=== PATIENT | male | born 1980 | race Caucasian/White ===

== ENCOUNTER 2016-05-23 13:35 | Emergency (ER) | payer OTHER ==
[2016-05-23 13:42] VITALS: RESP 18; TEMP 98.3
--- NOTE | 2016-05-23 14:35 | XR ---
EXAMINATION TYPE: XR shoulder complete LT DATE OF EXAM: 05/23/2016 2:31 PM CLINICAL HISTORY: pain COMPARISON: 05/05/2013 TECHNIQUE: Three views of the left shoulder are obtained. FINDINGS: There is no acute fracture/dislocation evident. Remote fracture distal left clavicle. The acromioclavicular and glenohumeral joint spaces appear within normal limits. The visualized ribs are intact and unremarkable. IMPRESSION: 1. There is no acute fracture or dislocation. ICD 10 NO FRACTURE, INITIAL EVALUATION
--- NOTE | 2016-05-23 14:38 | ED ---
Upper Extremity HPI - General Chief Complaint: Extremity Injury, Upper Stated Complaint: L shoulder pain Time Seen by Provider: 05/23/16 13:49 Source: patient, RN notes reviewed Mode of arrival: ambulatory Limitations: no limitations - History of Present Illness Initial Comments: Patient is a 35-year-old male presenting to the with a complaint of left shoulder pain. Patient reports he's had a history of clavicle fracture 2 years gone over the past week he's had no increased movements and pain. Patient reports that this is been worse over the past week. He states he is ALLERGIC to multiple pain medications. He reports that he has not had any recent imaging studies. Patient states that he has have full range of motion of the shoulder and hip. He denies any peripheral paresthesias. He denies any specific acute trauma causing pain.Patient denies any recent fever, chills, shortness of breath, chest pain, back pain, abdominal pain, nausea vomiting, numbness or tingling, dysuria or hematuria, constipation or diarrhea, headaches or visual changes, or any other current symptoms - Related Data Previous Rx's Medication Instructions Recorded Metoprolol Tartrate 25 mg PO BID #60 tab 01/10/16 Cyclobenzaprine [Flexeril] 10 mg PO TID #12 tablet 05/23/16 Allergies Allergy/AdvReac Type Severity Reaction Status Date / Time diclofenac potassium Allergy Rash/Hives Verified 05/23/16 13:42 [From Cataflam] garlic Allergy Rash/Hives Verified 05/23/16 13:42 ibuprofen Allergy Rash/Hives Verified 05/23/16 13:42 tramadol Allergy Unknown Verified 05/23/16 13:42 ziprasidone HCl [From Geodon] Allergy Unknown Verified 05/23/16 13:42 ziprasidone mesylate Allergy Unknown Verified 05/23/16 13:42 [From Geodon] Review of Systems ROS Statement: Those systems with pertinent positive or pertinent negative responses have been documented in the HPI. ROS Other: All systems not noted in ROS Statement are negative. Past Medical History Additional Past Medical History / Comment(s): BACK PAIN; BULGING DISCS shoulder , fx clavicle History of Any Multi-Drug Resistant Organisms: None Reported Additional Past Surgical History / Comment(s): EYE SURGERY Past Psychological History: Anxiety, Bipolar, Depression Smoking Status: Current every day smoker Past Alcohol Use History: Occasional Past Drug Use History: Marijuana General Exam - General Exam Comments Initial Comments: Patient is a pleasant 35-year-old male. He does not appear to be in any acute distress. Limitations: no limitations General appearance: alert, in no apparent distress Head exam: Present: atraumatic, normocephalic, normal inspection Eye exam: Present: normal appearance, PERRL, EOMI. Absent: scleral icterus, conjunctival injection, periorbital swelling ENT exam: Present: normal exam, mucous membranes moist Neck exam: Present: normal inspection. Absent: tenderness, meningismus, lymphadenopathy Respiratory exam: Present: normal lung sounds bilaterally. Absent: respiratory distress, wheezes, rales, rhonchi, stridor Cardiovascular Exam: Present: regular rate, normal rhythm, normal heart sounds. Absent: systolic murmur, diastolic murmur, rubs, gallop, clicks GI/Abdominal exam: Present: soft, normal bowel sounds. Absent: distended, tenderness, guarding, rebound, rigid Extremities exam: Present: normal inspection, full ROM, normal capillary refill. Absent: tenderness, pedal edema, joint swelling, calf tenderness Left Shoulder Exam: Present: normal inspection, full ROM, other (Evidence of poor healing of the clavicle bone. There is evidence of slight deformity.) Upper Arm exam: Present: normal inspection, full ROM Elbow exam: Present: normal inspection, full ROM Forearm Wrist exam: Present: normal inspection, full ROM Hand Wrist exam: Present: normal inspection, full ROM Back exam: Present: normal inspection Neurological exam: Present: alert, oriented X3, CN II-XII intact Psychiatric exam: Present: normal affect, normal mood Skin exam: Present: warm, dry, intact, normal color. Absent: rash Course Vital Signs 05/23/16 05/23/16 13:38 15:08 Temperature 98.3 F Pulse Rate 75 68 Respiratory 18 18 Rate Blood Pressure 173/90 149/103 O2 Sat by Pulse 99 98 Oximetry Medical Decision Making - Medical Decision Making Patient is a 35-year-old male presents with chief complaint of left shoulder pain for approximately one week. Patient does have a history of clavicular fracture approximately 2 years ago. Patient reports that he had poor healing. Patient denies any specific new trauma causing the injury. X-ray was completed and is negative for any acute process. Glenohumeral joint spaces do appear intact. Patient will be discharged at this time instructed to follow-up with orthopedic physician. Patient understands treatment plan will comply. Return parameters were discussed. - Radiology Data Radiology results: report reviewed There is no acute fracture or dislocation evident. There is normal fracture of the distal clavicle. The acromioclavicular and glenohumeral joints appear to be in normal limits. Visualizes ribs are intact and unremarkable. Cerebellar Dr. Brown. Disposition Clinical Impression: Shoulder strain, Hypertension Disposition: HOME SELF-CARE Condition: Good Instructions: Rotator Cuff Injury (ED) Additional Instructions: Instructed to apply heat and ice over the shoulder. Patient instructed to take anti-inflammatory medications as prescribed. Return to the EC if any alarming signs or symptoms occur. Patient instructed to follow up with primary care provider regards to high blood pressure. Prescriptions: Cyclobenzaprine [Flexeril] 10 mg PO TID #12 tablet Referrals: Reba Redding MD [Primary Care Provider] - 1-2 days Steven Hutson MD [STAFF PHYSICIAN] - 1-2 days Time of Disposition: 14:40
[2016-05-23] MEDS ORDERED: ACET/COD 300 MG/30 MG STARTER PACK 6 TAB BTL PO STA (14:50)
[2016-05-23 15:10] VITALS: BP 149/103; PULSE 68
== END 2016-05-23 15:10 | disposition home or self-care (01) ==
LOC: EC 13:35
DX: S46.012A Strain of muscle(s) and tendon(s) of the rotator cuff of left shoulder, initial encounter (principal); I10 Essential (primary) hypertension; F17.200 Nicotine dependence, unspecified, uncomplicated; Z87.81 Personal history of (healed) traumatic fracture; Z88.6 Allergy status to analgesic agent; Z88.8 Allergy status to other drugs, medicaments and biological substances; Z91.018 Allergy to other foods; X58.XXXA Exposure to other specified factors, initial encounter
CPT/HCPCS: 99283

== ENCOUNTER → 2016-07-27 | Outpatient (CLI) | payer OTHER ==
--- NOTE | 2016-07-27 08:04 | US ---
EXAMINATION TYPE: US liver DATE OF EXAM: 07/27/2016 7:29 AM COMPARISON: NONE CLINICAL HISTORY: R94.5 ABN LIVER FUNCTION TEST. EXAM MEASUREMENTS: Liver Length: 11.0 cm Gallbladder Wall: 0.2 cm CBD: 0.4 cm Right Kidney: 10.3 x 4.3 x 4.6 cm TECHNOLOGIST IMPRESSION: Pancreas: portions visualized wnl, partially obscured by bowel gas Liver: wnl Gallbladder: wnl Evidence for sonographic Clancy's sign: no CBD: wnl Right Kidney: wnl Visualized pancreas is within normal limits. Visualized liver is felt unremarkable. No shadowing mobi le gallstones are seen. Limited images of right kidney show no gross hydronephrosis. IMPRESSION: No worrisome intrahepatic mass or intrahepatic ductal dilatation.
== END | disposition home or self-care (01) ==
LOC: RADUSWWP 07:06
PROVIDERS: ATTEND Internal Medicine
DX: R94.5 Abnormal results of liver function studies (principal)
CPT/HCPCS: 76705

== ENCOUNTER → 2016-07-28 | Outpatient (CLI) | payer OTHER ==
[2016-07-28 12:47] LABS: Basophils # (A) 0.1 k/uL (0-0.2); Basophils % (A) 1 %; Eosinophils # (A) 0.2 k/uL (0-0.7); Eosinophils % (A) 3 %; HCT 49.3 % (39.0-53.0); HDW 3.07; HGB 16.6 gm/dL (13.0-17.5); Luc # (Auto) 0.29; Luc % (Auto) 3; Lymphocytes # (A) 2.9 k/uL (1.0-4.8); Lymphocytes % (A) 34 %; MCH 28.8 pg (25.0-35.0); MCHC 33.6 g/dL (31.0-37.0); MCV 85.8 fL (80.0-100.0); Mean Platelet Volume 8.2; Monocytes # (A) 0.3 k/uL (0-1.0); Monocytes % (A) 4 %; Neutrophils # (A) 4.7 k/uL (1.3-7.7); Neutrophils % (A) 55 %; RBC 5.75 m/uL (4.30-5.90); RDW 13.9 % (11.5-15.5); WBC 8.6 k/uL (3.8-10.6); WBC (Perox) 8.73
[2016-07-28 13:15] LABS: ALT 75 U/L (21-72); AST 52 U/L (17-59); Alkaline Phosphatase 99 U/L (38-126); Bilirubin, Delta 0.5 mg/dL (0.0-0.2); Total Bilirubin 1.5 mg/dL (0.2-1.3); Total Protein 9.2 g/dL (6.3-8.2)
[2016-07-28 13:45] LABS: Hepatitis B Surface Ag Index 0.09
[2016-07-28 13:51] LABS: Hepatitis B Core IgM Index 0.07
[2016-07-28 14:06] LABS: Hepatitis C Virus IgG Ab Reactive (Negative)
[2016-07-31 15:50] LABS: HCV Qualitative Result DETECTED (Not detected)
== END | disposition home or self-care (01) ==
LOC: LABWHC1 12:14
PROVIDERS: ATTEND Physician Assistant
DX: B18.2 Chronic viral hepatitis C (principal)
CPT/HCPCS: 36415; 80074; 80076; 85025; 87522; 87902

== ENCOUNTER → 2016-09-19 | Outpatient (CLI) | payer OTHER ==
[2016-09-19 11:04] VITALS: BMI 29.0
== END | disposition home or self-care (01) ==
LOC: MNTWWP 10:34
PROVIDERS: ATTEND Physician Assistant
DX: E66.09 Other obesity due to excess calories (principal)
CPT/HCPCS: 97802

== ENCOUNTER → 2016-11-09 | Outpatient (CLI) | payer OTHER ==
[2016-11-09 17:52] LABS: CH 28.9; CHCM 33.6; HCT 45.3 % (39.0-53.0); HGB 15.1 gm/dL (13.0-17.5); MCHC 33.5 g/dL (31.0-37.0); MCV 86.5 fL (80.0-100.0); Mean Platelet Volume 8.3; RBC 5.23 m/uL (4.30-5.90); RDW 14.3 % (11.5-15.5); WBC 7.6 k/uL (3.8-10.6)
[2016-11-09 18:06] LABS: Bilirubin, Delta 0.5 mg/dL (0.0-0.2); Total Bilirubin 1.2 mg/dL (0.2-1.3); Total Protein 8.6 g/dL (6.3-8.2)
[2016-11-13 10:27] LABS: LOG HCV IU/mL 5.93 (<1.08)
== END | disposition home or self-care (01) ==
LOC: LABWHC1 16:32
PROVIDERS: ATTEND Physician Assistant
DX: B18.2 Chronic viral hepatitis C (principal)
CPT/HCPCS: 36415; 80076; 85027; 87522

== ENCOUNTER 2017-02-03 | Emergency (ER) | payer OTHER ==
--- NOTE | 2017-02-03 12:38 | ED ---
General Adult HPI - General Chief complaint: Headache Stated complaint: Congested, headache Time Seen by Provider: 02/03/17 12:25 Source: patient, RN notes reviewed Mode of arrival: ambulatory Limitations: no limitations - History of Present Illness Initial comments: [age] male presents emergency Department chief complaint of cough cold runny nose like symptoms. He states it's been sick for a few days. Having ear pain and throat irritation. Patient admits to a dry cough. patient states he's had some nausea. Patient denies any high fevers. Patient was concerned due to the continued symptoms so they thought that they should be evaluated. Patient denies any recent fever, chills, shortness of breath, chest pain, back pain, abdominal pain, numbness or tingling, dysuria or hematuria, constipation or diarrhea, headaches or visual changes, or any other current symptoms. - Related Data Previous Rx's Medication Instructions Recorded Metoprolol Tartrate 25 mg PO BID #60 tab 01/10/16 Cyclobenzaprine [Flexeril] 10 mg PO TID #12 tablet 05/23/16 Azithromycin [Zithromax] 250 mg PO DIRECTED #6 tab 02/03/17 Allergies Allergy/AdvReac Type Severity Reaction Status Date / Time diclofenac potassium Allergy Rash/Hives Verified 02/03/17 12:24 [From Cataflam] garlic Allergy Rash/Hives Verified 02/03/17 12:24 ibuprofen Allergy Rash/Hives Verified 02/03/17 12:24 tramadol Allergy Unknown Verified 02/03/17 12:24 ziprasidone HCl [From Geodon] Allergy Unknown Verified 02/03/17 12:24 ziprasidone mesylate Allergy Unknown Verified 02/03/17 12:24 [From Geodon] Review of Systems ROS Statement: Those systems with pertinent positive or pertinent negative responses have been documented in the HPI. ROS Other: All systems not noted in ROS Statement are negative. Past Medical History Past Medical History: No Reported History Additional Past Medical History / Comment(s): BACK PAIN; BULGING DISCS shoulder , fx clavicle . Hepatitis C History of Any Multi-Drug Resistant Organisms: None Reported Past Surgical History: No Surgical Hx Reported Additional Past Surgical History / Comment(s): EYE SURGERY Past Psychological History: Anxiety, Bipolar, Depression Smoking Status: Current every day smoker Past Alcohol Use History: Rare Past Drug Use History: Marijuana General Exam - General Exam Comments Initial Comments: General exam: Alert, active, comfortable in no apparent distress Head: Normocephalic Eyes: Normal reaction of pupils, equal size, normal range of extraocular motion Ears: normal external ear canals, pink tympanic membranes with normal cone of lighton the right, patient has erythematous left tympanic membrane Nose: clear with pink turbinates Throat: no erythema or exudates with normal sized tonsils Neck: no masses, no nuchal rigidity Chest: no chest wall deformity Lungs: equal air entry with no crackles or wheeze CVS: S1 and S2 normal with no audible mumurs, regular rhythm Spine: no scoliosis or deformity Skin: no rashes Neurological: No focal deficits, tone is normal in all 4 extremities Limitations: no limitations Course Vital Signs 02/03/17 12:21 Temperature 97.5 F L Pulse Rate 68 Respiratory 18 Rate Blood Pressure 131/85 O2 Sat by Pulse 100 Oximetry Medical Decision Making - Medical Decision Making 36 yo female presents with what appears to be a left otitis media. This and we' ll start patient antibiotics. We discussed follow-up return parameters all questions. He stated he understood he is given plan. All questions have been answered. He'll be discharged. Disposition Clinical Impression: Left otitis media Disposition: HOME SELF-CARE Condition: Stable Instructions: Otitis Media (ED) Additional Instructions: Please use medication as discussed. Please follow up with family doctor if symptoms have not improved over the next two days. Please return to the emergency room if your symptoms increase or worsen or for any other concerns. Prescriptions: Azithromycin [Zithromax] 250 mg PO DIRECTED #6 tab Referrals: Reba Redding MD [Primary Care Provider] - 1-2 days Time of Disposition: 12:38
== END 2017-02-03 12:53 | disposition home or self-care (01) ==
CPT/HCPCS: 99283

== ENCOUNTER 2017-07-13 09:34 | Emergency (ER) | payer OTHER ==
[2017-07-13 09:55] VITALS: BP 150/95; PULSE 58; RESP 17; TEMP 98
[2017-07-13] MEDS ORDERED: HYDROcodone/APAP 5-325MG 1 EACH TAB PO STA (10:44)
--- NOTE | 2017-07-13 10:50 | ED ---
ENT HPI - General Chief complaint: Dental/Oral Stated complaint: tooth Infection Time Seen by Provider: 07/13/17 10:07 Source: patient Mode of arrival: ambulatory Limitations: no limitations - History of Present Illness Initial comments: Patient presents with chief complaint of dental pain. The patient states that he has been having dental problems for over a year. The patient states that he is going to have surgery at [facility] to take care of his poor dentition. Patient presents today for pain. The patient states that he feels like his teeth are getting infected again. He has been on multiple rounds of antibiotics for this periodically over the last year. Patient describes the pain as aching. He denies any trouble swallowing, shortness of breath, neck pain or swelling. Patient's medical ALLERGIES were reviewed. Patient states that he has been on clindamycin before with good relief of his dental pain. - Related Data Previous Rx's Medication Instructions Recorded Metoprolol Tartrate 25 mg PO BID #60 tab 01/10/16 Cyclobenzaprine [Flexeril] 10 mg PO TID #12 tablet 05/23/16 Azithromycin [Zithromax] 250 mg PO DIRECTED #6 tab 02/03/17 Clindamycin [Cleocin] 450 mg PO TID #30 capsule 07/13/17 Allergies Allergy/AdvReac Type Severity Reaction Status Date / Time diclofenac potassium Allergy Rash/Hives Verified 07/13/17 09:52 [From Cataflam] garlic Allergy Rash/Hives Verified 07/13/17 09:52 ibuprofen Allergy Rash/Hives Verified 07/13/17 09:52 tramadol Allergy Unknown Verified 07/13/17 09:52 ziprasidone HCl [From Geodon] Allergy Unknown Verified 07/13/17 09:52 ziprasidone mesylate Allergy Unknown Verified 07/13/17 09:52 [From Geodon] Review of Systems ROS Statement: Those systems with pertinent positive or pertinent negative responses have been documented in the HPI. ROS Other: All systems not noted in ROS Statement are negative. ENT: Reports: dental pain Past Medical History Past Medical History: No Reported History Additional Past Medical History / Comment(s): BACK PAIN; BULGING DISCS shoulder , fx clavicle . Hepatitis C History of Any Multi-Drug Resistant Organisms: None Reported Past Surgical History: No Surgical Hx Reported Additional Past Surgical History / Comment(s): EYE SURGERY Past Psychological History: Anxiety, Bipolar, Depression Smoking Status: Current every day smoker Past Alcohol Use History: Rare Past Drug Use History: Marijuana General Exam Limitations: no limitations General appearance: alert, in no apparent distress Head exam: Present: atraumatic, normocephalic Eye exam: Present: normal appearance, PERRL ENT exam: Present: mucous membranes moist, other (Patient has very poor dentition, there are numerous dental caries and missing teeth. There are no intraoral mucosal lesions noted) Neck exam: Present: full ROM. Absent: tenderness Respiratory exam: Present: normal lung sounds bilaterally. Absent: respiratory distress Cardiovascular Exam: Present: regular rate, normal rhythm GI/Abdominal exam: Present: soft. Absent: distended, tenderness Rectal exam: Present: deferred Neurological exam: Present: alert, oriented X3 Psychiatric exam: Present: normal affect, normal mood Course Vital Signs 07/13/17 09:52 Temperature 98.0 F Pulse Rate 58 L Respiratory 17 Rate Blood Pressure 150/95 O2 Sat by Pulse 99 Oximetry Medical Decision Making - Medical Decision Making Patient presents with chief complaint of dental pain and dental infection. This been an ongoing problem for over a year. Patient is scheduled to have surgery at [facility] to resolve this issue. On initial evaluation, vital signs are stable, patient is in no acute distress. Patient has been taking Tylenol for pain however today he does not expect any narcotic medications and only wants antibiotics. Examination of mouth shows poor dentition however there are no intraoral mucosal lesions, drainage, or overt swelling. There is no fluctuance of the face, neck, or sublingual area. Patient is handling his secretions well. Patient was given a dose of [place] in the emergency Department , instructed to continue taking Tylenol for pain, and was prescribed clindamycin for 10 days. He was instructed to follow up as soon as possible with oral surgery. He is instructed to return to the emergency department in 12 -24 hours for reevaluation if his symptoms worsen or change. Disposition Clinical Impression: Dental caries, Dental abscess Disposition: HOME SELF-CARE Condition: Good Instructions: Dental Abscess (ED), Dental Caries (ED) Prescriptions: Clindamycin [Cleocin] 450 mg PO TID #30 capsule Referrals: Reba Redding MD [Primary Care Provider] - 1-2 days
== END 2017-07-13 11:06 | disposition home or self-care (01) ==
LOC: EC 09:34
DX: K04.7 Periapical abscess without sinus (principal); K02.9 Dental caries, unspecified; F17.200 Nicotine dependence, unspecified, uncomplicated; Z88.5 Allergy status to narcotic agent; Z88.6 Allergy status to analgesic agent; Z88.8 Allergy status to other drugs, medicaments and biological substances; Z91.018 Allergy to other foods
CPT/HCPCS: 99282

== ENCOUNTER → 2017-07-27 | Outpatient (CLI) | payer OTHER ==
[2017-07-27 11:57] LABS: Basophils % (A) 1 %; Eosinophils # (A) 0.1 k/uL (0-0.7); Eosinophils % (A) 2 %; HGB 15.6 gm/dL (13.0-17.5); Lymphocytes # (A) 3.1 k/uL (1.0-4.8); Lymphocytes % (A) 42 %; MCH 30.6 pg (25.0-35.0); MCHC 36.2 g/dL (31.0-37.0); MCV 84.4 fL (80.0-100.0); Mean Platelet Volume 7.4; Monocytes # (A) 0.3 k/uL (0-1.0); Monocytes % (A) 5 %; Neutrophils # (A) 3.5 k/uL (1.3-7.7); Neutrophils % (A) 48 %; Platelet Count 258 k/uL (150-450); RBC 5.09 m/uL (4.30-5.90); RDW 13.9 % (11.5-15.5); WBC 7.2 k/uL (3.8-10.6)
[2017-07-27 12:00] LABS: Albumin 4.6 g/dL (3.5-5.0); Bilirubin, Delta 0.4 mg/dL (0.0-0.2); Bilirubin,Unconjugated 0.2 mg/dL (0.0-1.1); Total Bilirubin 0.6 mg/dL (0.2-1.3); Total Protein 8.3 g/dL (6.3-8.2)
[2017-07-31 10:46] LABS: Hepatits C Virus RNA DETECTED (Not detected); LOG HCV IU/mL 5.93 (<1.08)
== END | disposition home or self-care (01) ==
LOC: LABWHC1 11:20
PROVIDERS: ATTEND Physician Assistant
DX: B18.2 Chronic viral hepatitis C (principal)
CPT/HCPCS: 36415; 80076; 85025; 87522

== ENCOUNTER 2017-09-28 05:56 | Emergency (ER) | payer OTHER ==
[2017-09-28 06:03] VITALS: BP 168/101; PULSE 95; RESP 18; TEMP 98.3
[2017-09-28] MEDS ORDERED: INSULIN ASPART 100 UNIT/ML 1 ML 10 ML VIAL SQ ONE (06:04)
--- NOTE | 2017-09-28 06:16 | ED ---
ENT HPI - General Chief complaint: Dental/Oral Stated complaint: Dental Pain Time Seen by Provider: 09/28/17 06:03 Source: patient Mode of arrival: ambulatory Limitations: no limitations - History of Present Illness Initial comments: This is a 37-year-old male who presents emergency department for right-sided dental pain. The patient recently had all of his teeth removed on the of this month. He was on [place] right after the surgery however states that the pain is now returned. He states that the pain is worse on the right side and after he eats. He states he has noticed some swelling in his cheek as well. No fevers or chills or drainage. He was supposed to follow-up with the oral surgeon 5 days after the procedure however never did. He does have an appointment with [facility] to have false teeth fitted and wants to make sure that there is no infection before he goes in and has this appointment. Denies any other complaints. Patient states "I'm here just to get the pain under control so that I can eat and make sure that I don't have an infection ". - Related Data Previous Rx's Medication Instructions Recorded Metoprolol Tartrate 25 mg PO BID #60 tab 01/10/16 Cyclobenzaprine [Flexeril] 10 mg PO TID #12 tablet 05/23/16 Azithromycin [Zithromax] 250 mg PO DIRECTED #6 tab 02/03/17 Clindamycin [Cleocin] 450 mg PO TID #30 capsule 07/13/17 Acetaminophen with Codeine 1 tab PO Q6H PRN 3 Days #10 tab 09/28/17 [Tylenol w/codeine #3] Clindamycin [Cleocin] 450 mg PO Q6H #60 capsule 09/28/17 Allergies Allergy/AdvReac Type Severity Reaction Status Date / Time diclofenac potassium Allergy Rash/Hives Verified 09/28/17 06:02 [From Cataflam] garlic Allergy Rash/Hives Verified 09/28/17 06:02 ibuprofen Allergy Rash/Hives Verified 09/28/17 06:02 tramadol Allergy Unknown Verified 09/28/17 06:02 ziprasidone HCl [From Geodon] Allergy Unknown Verified 09/28/17 06:02 ziprasidone mesylate Allergy Unknown Verified 09/28/17 06:02 [From Geodon] Review of Systems ROS Statement: Those systems with pertinent positive or pertinent negative responses have been documented in the HPI. ROS Other: All systems not noted in ROS Statement are negative. Past Medical History Past Medical History: No Reported History Additional Past Medical History / Comment(s): BACK PAIN; BULGING DISCS shoulder , fx clavicle . Hepatitis C History of Any Multi-Drug Resistant Organisms: None Reported Past Surgical History: No Surgical Hx Reported Additional Past Surgical History / Comment(s): EYE SURGERY, oral surgery Past Psychological History: Anxiety, Bipolar, Depression Smoking Status: Current every day smoker Past Alcohol Use History: Rare Past Drug Use History: Marijuana General Exam - General Exam Comments Initial Comments: Constitutional: Awake alert Appears comfortable Head: Normocephalic atraumatic Eyes: no conjunctival injection No scleral icterus EOMI ENT: All teeth have been removed from the mouth, there are postsurgical changes along the mandible and maxilla, there is no visible abscesses, there is some mild swelling of the right buccal mucosa however no fluctuant areas Neck: No JVD Supple Heart: Regular rate rhythm normal S1-S2 no murmurs Lungs: Clear to auscultation bilaterally No wheezing No rales Abdomen: Soft nondistended nontender Extremities: Non edematous DP pulses intact Radial pulses intact Neuro: A&Ox3 No focal neurologic deficits Psych: Appropriate mood and affect Limitations: no limitations Course Vital Signs 09/28/17 06:00 Temperature 98.3 F Pulse Rate 95 Respiratory 18 Rate Blood Pressure 168/101 O2 Sat by Pulse 98 Oximetry Medical Decision Making - Medical Decision Making This is a 37-year-old male who presents emergency department for dental pain. The patient will be provided with Tylenol 3 and clindamycin. He has appointment with a dentist next week. Told to return if he has worsening or changing symptoms. The patient was strongly encouraged follow-up with his oral surgeon however the patient states he has difficulty getting down to [place] to have this done. All questions were answered. Disposition Clinical Impression: Pain, dental Disposition: HOME SELF-CARE Condition: Stable Instructions: Toothache (ED) Prescriptions: Acetaminophen with Codeine [Tylenol w/codeine #3] 1 tab PO Q6H PRN 3 Days #10 tab PRN Reason: Pain Clindamycin [Cleocin] 450 mg PO Q6H #60 capsule Is patient prescribed a controlled substance at d/c from ED?: Yes When asked, does pt state using other controlled substances?: No If prescribed controlled substance>3 days was MAPS reviewed?: Prescribed <3 Days If opioid is for acute pain is fill amount 7 days or less?: Yes Referrals: Reba Redding MD [Primary Care Provider] - 1-2 days
== END 2017-09-28 06:21 | disposition home or self-care (01) ==
LOC: EC 05:56
DX: K08.89 Other specified disorders of teeth and supporting structures (principal); K08.409 Partial loss of teeth, unspecified cause, unspecified class; F17.200 Nicotine dependence, unspecified, uncomplicated; Z88.6 Allergy status to analgesic agent; Z91.018 Allergy to other foods; Z88.8 Allergy status to other drugs, medicaments and biological substances
CPT/HCPCS: 99282

== ENCOUNTER 2018-03-27 09:04 | Emergency (ER) | payer OTHER ==
--- NOTE | 2018-03-27 09:38 | ED ---
URI HPI - General Chief Complaint: Upper Respiratory Infection Stated Complaint: cold symptoms, poss uti Time Seen by Provider: 03/27/18 09:10 Source: patient, RN notes reviewed Mode of arrival: ambulatory Limitations: no limitations - History of Present Illness Initial Comments: 37-year-old male presents emergency Department chief complaint cough congestion , dysuria. Patient states symptoms have been present for last few days. Patient states that the congestion comes and goes. He denies any current chest pain, shortness of breath. Patient states that he has not tried any over-the- counter cough and cold medications. Patient states that he has noticed dysuria states that he's had urinary tract infections in the past and is concerned about the symptoms. Patient denies any abdominal pain, flank pain, fever, chills - Related Data Home Medications Medication Instructions Recorded Confirmed Ibuprofen [Motrin Ib] 400 mg PO Q6H PRN 03/27/18 03/27/18 Loratadine [Claritin] 10 mg PO DAILY PRN 03/27/18 03/27/18 Previous Rx's Medication Instructions Recorded RX: Metoprolol Tartrate 25 mg PO BID #60 tab 01/10/16 Phenazopyridine [Pyridium] 200 mg PO TID #6 tablet 03/27/18 Allergies Allergy/AdvReac Type Severity Reaction Status Date / Time diclofenac potassium Allergy Rash/Hives Verified 03/27/18 10:03 [From Cataflam] garlic Allergy Rash/Hives Verified 03/27/18 10:03 tramadol Allergy Unknown Verified 03/27/18 10:03 ziprasidone HCl [From Geodon] Allergy Unknown Verified 03/27/18 10:03 ziprasidone mesylate Allergy Unknown Verified 03/27/18 10:03 [From Geodon] buspirone [From BuSpar] AdvReac MAKES Verified 03/27/18 10:06 ANXIETY WORSE Review of Systems ROS Statement: Those systems with pertinent positive or pertinent negative responses have been documented in the HPI. ROS Other: All systems not noted in ROS Statement are negative. Past Medical History Past Medical History: No Reported History Additional Past Medical History / Comment(s): BACK PAIN; BULGING DISCS shoulder , fx clavicle . Hepatitis C History of Any Multi-Drug Resistant Organisms: None Reported Past Surgical History: No Surgical Hx Reported Additional Past Surgical History / Comment(s): EYE SURGERY, oral surgery, tooth extractoin 09-18-17 Past Psychological History: Anxiety, Bipolar, Depression Smoking Status: Current every day smoker Past Alcohol Use History: Rare Past Drug Use History: Marijuana General Exam Limitations: no limitations General appearance: alert, in no apparent distress Head exam: Present: atraumatic, normocephalic, normal inspection Eye exam: Present: normal appearance, PERRL, EOMI. Absent: scleral icterus, conjunctival injection, periorbital swelling ENT exam: Present: normal exam, normal oropharynx, mucous membranes moist, TM's normal bilaterally, normal external ear exam Neck exam: Present: normal inspection, full ROM. Absent: tenderness, meningismus, lymphadenopathy Respiratory exam: Present: normal lung sounds bilaterally. Absent: respiratory distress, wheezes, rales, rhonchi, stridor Cardiovascular Exam: Present: normal rhythm, bradycardia, normal heart sounds. Absent: systolic murmur, diastolic murmur, rubs, gallop, clicks GI/Abdominal exam: Present: soft, normal bowel sounds. Absent: distended, tenderness, guarding, rebound, rigid Back exam: Absent: CVA tenderness (R), CVA tenderness (L) Neurological exam: Present: alert, oriented X3, CN II-XII intact Course Vital Signs 03/27/18 09:05 Temperature 98.1 F Pulse Rate 50 L Respiratory 18 Rate Blood Pressure 151/99 O2 Sat by Pulse 100 Oximetry Medical Decision Making - Medical Decision Making 37-year-old male presented for URI symptoms and dysuria. Patient has no evidence of urinary tract infection. Denies any sexual activity no concern for STDs. Patient will given Pyridium at this time. Patient's chest x-ray reviewed no acute abnormality. Patient has a viral URI conservative treatment at this time. - Lab Data Lab Results 03/27/18 Range/Units 10:15 Urine Color Yellow Urine Appearance Cloudy (Clear) Urine pH 7.5 (5.0-8.0) Ur Specific [place] 1.014 (1.001-1.035) Urine Protein Negative (Negative) Urine Glucose (UA) Negative (Negative) Urine Ketones Negative (Negative) Urine Blood Negative (Negative) Urine Nitrite Negative (Negative) Urine Bilirubin Negative (Negative) Urine Urobilinogen <2.0 (<2.0) mg/dL Ur Leukocyte Esterase Negative (Negative) Urine WBC 1 (0-5) /hpf Amorphous Sediment Few H (None) /hpf Urine Bacteria Rare H (None) /hpf Urine Mucus Occasional H (None) /hpf Disposition Clinical Impression: Upper respiratory infection, Dysuria Disposition: HOME SELF-CARE Condition: Stable Instructions: Upper Respiratory Infection (ED) Additional Instructions: Please return to the Emergency Department if symptoms worsen or any other concerns. Prescriptions: Phenazopyridine [Pyridium] 200 mg PO TID #6 tablet Is patient prescribed a controlled substance at d/c from ED?: No Referrals: None,Stated [Primary Care Provider] - 1-2 days Time of Disposition: 11:04
--- NOTE | 2018-03-27 10:02 | XR ---
EXAMINATION TYPE: XR chest 2V DATE OF EXAM: 03/27/2018 COMPARISON: 01/10/2016 HISTORY: 37-year-old male with cough and pain TECHNIQUE: PA and lateral views FINDINGS: Similar widening and bony deformity at the bilateral AC joints. Findings suggest sequela of prior tra ashok. Heart normal size. Aorta and pulmonary vasculature within normal limits. No consolidation or pleural effusion. IMPRESSION: No acute cardiopulmonary process. Stable sequela of prior trauma at the AC joints.
[2018-03-27 11:00] LABS: Amorphous Sediment,Urine Few /hpf; Appearance,Urine Cloudy (Clear); Bacteria,Urine Rare /hpf; Bilirubin,Urine Negative (Negative); Blood,Urine Negative (Negative); Color,Urine Yellow; Glucose,Urine (UA) Negative (Negative); Ketones,Urine Negative (Negative); Leukocyte Esterase,Urine Negative (Negative); Mucus,Urine Occasional /hpf; Nitrite,Urine Negative (Negative); PH, Urine 7.5 (5.0-8.0); Protein,Urine Negative (Negative); Specific Gravity,Urine 1.014 (1.001-1.035); Urobilinogen,Urine <2.0 mg/dL (<2.0)
[2018-03-27 11:06] VITALS: BP 137/98; PULSE 46; RESP 16; TEMP 97.6
== END 2018-03-27 11:11 | disposition home or self-care (01) ==
LOC: EC 09:04
DX: J06.9 Acute upper respiratory infection, unspecified (principal); R30.0 Dysuria; R05 Cough; F17.200 Nicotine dependence, unspecified, uncomplicated; Z98.890 Other specified postprocedural states; Z88.5 Allergy status to narcotic agent; Z88.6 Allergy status to analgesic agent; Z88.8 Allergy status to other drugs, medicaments and biological substances; Z91.018 Allergy to other foods
CPT/HCPCS: 71046; 81001; 99283

== ENCOUNTER → 2018-04-06 | Outpatient (CLI) | payer OTHER ==
[2018-04-06 10:05] LABS: INR 1.1 (<1.2); Prothrombin Time 10.9 sec (9.0-12.0)
[2018-04-06 10:20] LABS: Basophils % (A) 0 %; Eosinophils # (A) 0.2 k/uL (0-0.7); Eosinophils % (A) 3 %; HCT 44.8 % (39.0-53.0); HGB 14.7 gm/dL (13.0-17.5); Lymphocytes # (A) 1.7 k/uL (1.0-4.8); Lymphocytes % (A) 26 %; MCH 30.1 pg (25.0-35.0); MCHC 32.7 g/dL (31.0-37.0); MCV 92.1 fL (80.0-100.0); Mean Platelet Volume 8.2; Monocytes # (A) 0.3 k/uL (0-1.0); Monocytes % (A) 5 %; Neutrophils # (A) 4.4 k/uL (1.3-7.7); Neutrophils % (A) 65 %; Platelet Count 231 k/uL (150-450); RBC 4.87 m/uL (4.30-5.90); RDW 13.9 % (11.5-15.5); WBC 6.8 k/uL (3.8-10.6)
[2018-04-06 16:49] LABS: Albumin 4.4 g/dL (3.80-4.90); Albumin/Globulin Ratio 1.76 (1.20-2.10); Bilirubin, Conjugated 0.3 mg/dL (0.20-0.40); Bilirubin,Unconjugated 0.7 mg/dL; Globulin 2.5 g/dL (2.1-3.7); Total Protein 6.9 g/dL (6.2-8.2)
[2018-04-09 15:24] LABS: Hepatits C Virus RNA DETECTED (Not detected); LOG HCV IU/mL 5.71 (<1.08)
== END ==
LOC: LABWHC1 08:25
PROVIDERS: ATTEND Physician Assistant
DX: B18.2 Chronic viral hepatitis C (principal)
CPT/HCPCS: 36415; 80076; 82172; 82247; 82565; 82977; 83010; 83883; 84460; 85025; 85610; 87522

== ENCOUNTER 2018-06-08 05:48 | Emergency (ER) | payer OTHER ==
[2018-06-08] MEDS: metroNIDAZOLE 500 MG TAB PO STA (06:32)
--- NOTE | 2018-06-08 07:03 | ED ---
Male Urogenital HPI - General Chief complaint: Urogenital Stated complaint: male Time Seen by Provider: 06/08/18 06:12 Source: patient Mode of arrival: ambulatory Limitations: no limitations - History of Present Illness Initial comments: This patient 37-year-old man who presents for evaluation, after learning that he had a sexual partner who was diagnosed with Trichomonas. Patient states that he may have some mild dysuria. He denies other symptoms. No discharge. No testicular pain or swelling. No fever or chills. MD Complaint: other -: days(s) Radiation: none Severity scale (1-10): 0 Improves with: none Worsens with: urination - Related Data Home Medications Medication Instructions Recorded Confirmed Ibuprofen [Motrin Ib] 400 mg PO Q6H PRN 03/27/18 03/27/18 Loratadine [Claritin] 10 mg PO DAILY PRN 03/27/18 03/27/18 Previous Rx's Medication Instructions Recorded Metoprolol Tartrate 25 mg PO BID #60 tab 01/10/16 Acetaminophen Tab [Tylenol Tab] 500 mg PO Q6H #30 tablet 03/27/18 Phenazopyridine [Pyridium] 200 mg PO TID #6 tablet 03/27/18 guaiFENesin SYRUP 100MG/5ML 10 ml PO Q8HR #120 ml 03/27/18 [Robitussin] Allergies Allergy/AdvReac Type Severity Reaction Status Date / Time diclofenac potassium Allergy Rash/Hives Verified 06/08/18 05:57 [From Cataflam] garlic Allergy Rash/Hives Verified 06/08/18 05:57 tramadol Allergy Unknown Verified 06/08/18 05:57 ziprasidone HCl [From Geodon] Allergy Unknown Verified 06/08/18 05:57 ziprasidone mesylate Allergy Unknown Verified 06/08/18 05:57 [From Geodon] buspirone [From BuSpar] AdvReac MAKES Verified 06/08/18 05:57 ANXIETY WORSE Review of Systems ROS Statement: Those systems with pertinent positive or pertinent negative responses have been documented in the HPI. ROS Other: All systems not noted in ROS Statement are negative. Constitutional: Denies: fever, chills Respiratory: Denies: cough, dyspnea Cardiovascular: Denies: chest pain, edema Gastrointestinal: Denies: abdominal pain, nausea, vomiting, diarrhea Genitourinary: Reports: dysuria. Denies: urgency, frequency, hematuria, discharge, testicular pain, testicular mass Musculoskeletal: Denies: back pain Skin: Denies: rash Neurological: Denies: headache Past Medical History Past Medical History: No Reported History Additional Past Medical History / Comment(s): BACK PAIN; BULGING DISCS shoulder , fx clavicle . Hepatitis C History of Any Multi-Drug Resistant Organisms: None Reported Past Surgical History: Orthopedic Surgery Additional Past Surgical History / Comment(s): EYE SURGERY, oral surgery, tooth extractoin 09-18- Past Psychological History: Anxiety, Bipolar, Depression Smoking Status: Current every day smoker Past Alcohol Use History: Rare Past Drug Use History: Marijuana General Exam Limitations: no limitations General appearance: alert, in no apparent distress Head exam: Present: atraumatic, normocephalic Respiratory exam: Present: normal lung sounds bilaterally. Absent: respiratory distress, wheezes, rales, rhonchi, stridor Cardiovascular Exam: Present: regular rate, normal rhythm, normal heart sounds. Absent: systolic murmur, diastolic murmur, rubs, gallop GI/Abdominal exam: Present: soft. Absent: distended, tenderness, guarding, rebound, rigid Skin exam: Present: warm, dry, intact, normal color. Absent: rash Course Vital Signs 06/08/18 06/08/18 05:52 07:20 Temperature 97.6 F 98.2 F Pulse Rate 60 79 Respiratory 20 16 Rate Blood Pressure 163/94 130/89 O2 Sat by Pulse 98 97 Oximetry Medical Decision Making - Lab Data Lab Results 06/08/18 Range/Units 06:30 Chlamydia Source Urine Chlamydia DNA (PCR) Negative (Neg,Equiv) N. gonorrhoeae Source Urine N.gonorrhoeae DNA Probe Negative (Neg,Equiv) Disposition Clinical Impression: Trichomonas exposure Disposition: HOME SELF-CARE Condition: Good Instructions (If sedation given, give patient instructions): Trichomoniasis (ED ) Is patient prescribed a controlled substance at d/c from ED?: No Referrals: Alem Henao MD [Primary Care Provider] - 1-2 days
[2018-06-08 07:21] VITALS: BP 130/89; PULSE 79; RESP 16; TEMP 98.2
[2018-06-09 14:57] LABS: C. trachomatis,PCR Negative (Neg,Equiv); Chlamydia trachomatis Source Urine; N. gonorrhoeae,PCR Negative (Neg,Equiv); Neisseria Source Urine
== END 2018-06-08 07:21 | disposition home or self-care (01) ==
LOC: EC 05:48
DX: Z20.2 Contact with and (suspected) exposure to infections with a predominantly sexual mode of transmission (principal); R30.0 Dysuria; F17.200 Nicotine dependence, unspecified, uncomplicated; Z86.19 Personal history of other infectious and parasitic diseases; Z88.5 Allergy status to narcotic agent; Z88.8 Allergy status to other drugs, medicaments and biological substances; Z91.018 Allergy to other foods
CPT/HCPCS: 87491; 87591; 99283

== ENCOUNTER 2018-10-02 09:33 | Emergency (ER) | payer OTHER ==
[2018-10-02 09:43] VITALS: RESP 18
--- NOTE | 2018-10-02 09:52 | ED ---
Lower Extremity Injury HPI - General Chief Complaint: Extremity Injury, Lower Stated Complaint: RT ANKLE INJURY Time Seen by Provider: 10/02/18 09:44 Source: patient, RN notes reviewed, old records reviewed Mode of arrival: ambulatory Limitations: no limitations - History of Present Illness Initial Comments: Patient's 30-year-old male child or ankle pain and swelling after twisting his ankle yesterday. He reports he slipped on 2-3 steps. Denies any significant ankle sprains before. Patient states she's had full range of motion of the toes and foot. He states she's had difficult time walking. He reports [facility]. Patient denies any recent fever, chills, shortness of breath, chest pain, back pain, abdominal pain, nausea vomiting, numbness or tingling, dysuria or hematuria, constipation or diarrhea, headaches or visual changes, or any other current symptoms - Related Data Home Medications Medication Instructions Recorded Confirmed Cetirizine HCl [Zyrtec] 10 mg PO DAILY 10/02/18 10/02/18 FLUoxetine HCL [PROzac] 10 mg PO DAILY 10/02/18 10/02/18 Previous Rx's Medication Instructions Recorded Metoprolol Tartrate 25 mg PO BID #60 tab 01/10/16 Allergies Allergy/AdvReac Type Severity Reaction Status Date / Time diclofenac potassium Allergy Rash/Hives Verified 10/02/18 09:56 [From Cataflam] garlic Allergy Rash/Hives Verified 10/02/18 09:56 tramadol Allergy Unknown Verified 10/02/18 09:56 ziprasidone HCl [From Geodon] Allergy Unknown Verified 10/02/18 09:56 ziprasidone mesylate Allergy Unknown Verified 10/02/18 09:56 [From Geodon] buspirone [From BuSpar] AdvReac MAKES Verified 10/02/18 09:56 ANXIETY WORSE Review of Systems ROS Statement: Those systems with pertinent positive or pertinent negative responses have been documented in the HPI. ROS Other: All systems not noted in ROS Statement are negative. Past Medical History Past Medical History: No Reported History Additional Past Medical History / Comment(s): BACK PAIN; BULGING DISCS shoulder, fx clavicle . Hepatitis C History of Any Multi-Drug Resistant Organisms: None Reported Past Surgical History: Orthopedic Surgery Additional Past Surgical History / Comment(s): EYE SURGERY, oral surgery, tooth extractoin 09-18-17 Past Psychological History: Anxiety, Bipolar, Depression Smoking Status: Current every day smoker Past Alcohol Use History: Rare Past Drug Use History: Marijuana General Exam Limitations: no limitations General appearance: alert, in no apparent distress Head exam: Present: atraumatic, normocephalic, normal inspection Eye exam: Present: normal appearance, PERRL, EOMI. Absent: scleral icterus, conjunctival injection, periorbital swelling ENT exam: Present: normal exam, mucous membranes moist Neck exam: Present: normal inspection. Absent: tenderness, meningismus, lymphadenopathy Respiratory exam: Present: normal lung sounds bilaterally. Absent: respiratory distress, wheezes, rales, rhonchi, stridor Cardiovascular Exam: Present: regular rate, normal rhythm, normal heart sounds. Absent: systolic murmur, diastolic murmur, rubs, gallop, clicks GI/Abdominal exam: Present: soft Extremities exam: Present: normal inspection, full ROM, normal capillary refill. Absent: tenderness, pedal edema, joint swelling, calf tenderness Right Lower Leg exam: Present: normal inspection, tenderness Ankle exam: Present: tenderness (lateral malleolus). Absent: normal inspection Foot/Toe exam: Present: normal inspection, full ROM Neurovascular tendon exam: Present: no vascular compromise Gait: observed and normal Back exam: Present: normal inspection Neurological exam: Present: alert, oriented X3, CN II-XII intact Psychiatric exam: Present: normal affect, normal mood Skin exam: Present: warm, dry, intact, normal color. Absent: rash Course Vital Signs 10/02/18 09:41 Temperature 97.2 F L Pulse Rate 71 Respiratory 18 Rate Blood Pressure 135/87 O2 Sat by Pulse 99 Oximetry Procedures - Orthopedic Splinting/Casting Injury #1 Side: right Lower Extremity Injury Location: ankle Lower Extremity Immobilizer: AirCast, Jasper wrap Additional Comments: Patient is reevaluated neurovascularly intact. Medical Decision Making - Medical Decision Making 30-year-old male present today with right ankles pain and swelling after twisting his ankle. Patient has evidence of tenderness and swelling over the lateral malleolus. Placement for pain. X-rays of the ankle and foot were reviewed. Negative for any acute fracture. Patient likely has a significant sprain given Jasper wrap and ankle stirrup splint written for crutches. Discussed Motrin Tylenol and elevating for pain. All questions answered return parameters were discussed. Disposition Clinical Impression: Right ankle sprain Disposition: HOME SELF-CARE Condition: Good Instructions (If sedation given, give patient instructions): Ankle Sprain (ED) Additional Instructions: Follow-up with your primary care doctor and ortho. Motrin or Tylenol for pain.. Return to emergency department if any alarming signs or symptoms occur. Is patient prescribed a controlled substance at d/c from ED?: No Referrals: Alem Henao MD [Primary Care Provider] - 1-2 days Time of Disposition: 10:32
--- NOTE | 2018-10-02 10:10 | XR ---
EXAMINATION TYPE: XR ankle complete RT DATE OF EXAM: 10/02/2018 CLINICAL HISTORY: Injury, pain TECHNIQUE: Frontal, lateral and oblique images of the right ankle are obtained. COMPARISON: None. FINDINGS: There is no acute fracture/dislocation evident in the right ankle. The ankle mortise appe ars within normal limits. Prominent soft tissue swelling over the lateral malleolus. IMPRESSION: 1. There is no acute fracture or dislocation in the right ankle. 2. Soft tissue swelling lateral malleolus. 3. Follow-up exams can be performed 7-10 days from acute trauma for continued pain.
--- NOTE | 2018-10-02 10:11 | XR ---
EXAMINATION TYPE: XR foot limited RT DATE OF EXAM: 10/02/2018 COMPARISON: Right ankle HISTORY: Pain, injury TECHNIQUE: 2 view right foot FINDINGS: No acute fractures or dislocations are evident. The mild soft tissue swelling over the late ral malleolus is evident on this exam. The soft tissues otherwise appear normal. Joint spaces are pre served. IMPRESSION: 1. No acute osseous abnormality right foot. 2. Follow-up exams can be performed 7-10 days from acute trauma for continued pain.
[2018-10-02 10:52] VITALS: BP 118/81; PULSE 55; TEMP 97.9
== END 2018-10-02 10:51 | disposition home or self-care (01) ==
LOC: EC 09:33
DX: S93.401A Sprain of unspecified ligament of right ankle, initial encounter (principal); F41.9 Anxiety disorder, unspecified; F31.9 Bipolar disorder, unspecified; F17.200 Nicotine dependence, unspecified, uncomplicated; Z79.899 Other long term (current) drug therapy; Z88.6 Allergy status to analgesic agent; Z88.5 Allergy status to narcotic agent; Z88.8 Allergy status to other drugs, medicaments and biological substances; Z91.018 Allergy to other foods; W18.40XA Slipping, tripping and stumbling without falling, unspecified, initial encounter; Y92.009 Unspecified place in unspecified non-institutional (private) residence as the place of occurrence of the external cause
CPT/HCPCS: 73610; 73620; 99284; L4350

== ENCOUNTER → 2019-02-18 | Outpatient (CLI) | payer OTHER ==
[2019-02-18 12:52] LABS: Basophils % (A) 0 %; Eosinophils # (A) 0.2 k/uL (0-0.7); Eosinophils % (A) 3 %; HCT 43.8 % (39.0-53.0); HGB 15.1 gm/dL (13.0-17.5); Lymphocytes # (A) 2.3 k/uL (1.0-4.8); Lymphocytes % (A) 37 %; MCH 31.2 pg (25.0-35.0); MCHC 34.5 g/dL (31.0-37.0); MCV 90.5 fL (80.0-100.0); Mean Platelet Volume 7.2; Monocytes # (A) 0.3 k/uL (0-1.0); Monocytes % (A) 5 %; Neutrophils # (A) 3.2 k/uL (1.3-7.7); Neutrophils % (A) 52 %; Platelet Count 249 k/uL (150-450); RBC 4.84 m/uL (4.30-5.90); RDW 12.9 % (11.5-15.5); WBC 6.1 k/uL (3.8-10.6)
[2019-02-18 13:02] LABS: Prothrombin Time 10.4 sec (9.0-12.0)
[2019-02-18 18:46] LABS: African American GFR (CKD) 110.2 (60.0-200.0); Albumin 4.3 g/dL (3.80-4.90); Albumin/Globulin Ratio 1.72 (1.60-3.17); Bilirubin, Conjugated 0.2 mg/dL (0.20-0.40); Bilirubin,Unconjugated 0.4 mg/dL; Globulin 2.5 g/dL (1.6-3.3); Total Bilirubin 0.6 mg/dL (0.2-1.2); Total Protein 6.8 g/dL (6.2-8.2)
[2019-02-19 14:30] LABS: Hepatits C Virus RNA DETECTED (Not detected); LOG HCV IU/mL 5.71 (<1.08)
== END | disposition home or self-care (01) ==
LOC: LABWHC1 11:52
PROVIDERS: ATTEND Physician Assistant
DX: B18.2 Chronic viral hepatitis C (principal)
CPT/HCPCS: 36415; 80076; 81596; 82565; 85025; 85610; 87522

== ENCOUNTER → 2019-04-18 | Outpatient (CLI) | payer OTHER ==
--- NOTE | 2019-04-19 03:08 | MR ---
EXAMINATION TYPE: MR lumbar spine wo con DATE OF EXAM: 04/18/2019 COMPARISON: January 07, 2016 HISTORY: Chronic LBP Lumbar vertebra have normal alignment. Disc spaces are fairly normal. There is no compression fractur e. There is no lumbar spinal stenosis. Neural foramina appear normal. Lumbar nerve roots appear iqra l. Posterior elements are intact. There is no lumbar paraspinal mass. Sacroiliac joints appear intact . IMPRESSION: Negative MR scan of the lumbar spine. No fracture. No spinal stenosis. No change.
== END | disposition home or self-care (01) ==
LOC: RADMRIMAIN 21:00
PROVIDERS: ATTEND Psychiatry & Neurology Pain Medicine
DX: M54.5 Low back pain (principal); Z88.5 Allergy status to narcotic agent; Z88.8 Allergy status to other drugs, medicaments and biological substances
CPT/HCPCS: 72148

== ENCOUNTER 2019-05-26 06:55 | Emergency (ER) | payer OTHER ==
[2019-05-26 07:12] VITALS: BP 148/95; PULSE 60; TEMP 98.2
--- NOTE | 2019-05-26 07:20 | ED ---
Male Urogenital HPI - General Chief complaint: Urogenital Stated complaint: Urinary issues Time Seen by Provider: 05/26/19 07:18 Source: patient, RN notes reviewed, old records reviewed Mode of arrival: ambulatory Limitations: no limitations - History of Present Illness Initial comments: This is a 30-year-old male presented today for evaluation of dysuria burning with urination for 2 days. History of urinary tract infection. No fevers. No real abdominal pain. No nausea or vomiting. Eyes any change or new sexual activity MD Complaint: dysuria -: days(s) Location: penis Radiation: none Severity: mild Quality: aching Consistency: constant Improves with: none Worsens with: urination Reports: denies other symptoms - Related Data Home Medications Medication Instructions Recorded Confirmed Cetirizine HCl [Zyrtec] 10 mg PO DAILY 10/02/18 10/02/18 FLUoxetine HCL [PROzac] 10 mg PO DAILY 10/02/18 10/02/18 Previous Rx's Medication Instructions Recorded Metoprolol Tartrate 25 mg PO BID #60 tab 01/10/16 Ciprofloxacin HCl [Cipro] 500 mg PO Q12HR #14 tablet 05/26/19 Allergies Allergy/AdvReac Type Severity Reaction Status Date / Time diclofenac potassium Allergy Rash/Hives Verified 05/26/19 07:12 [From Cataflam] garlic Allergy Rash/Hives Verified 05/26/19 07:12 tramadol Allergy Unknown Verified 05/26/19 07:12 ziprasidone HCl [From Geodon] Allergy Unknown Verified 05/26/19 07:12 ziprasidone mesylate Allergy Unknown Verified 05/26/19 07:12 [From Geodon] buspirone [From BuSpar] AdvReac MAKES Verified 05/26/19 07:12 ANXIETY WORSE Review of Systems ROS Statement: Those systems with pertinent positive or pertinent negative responses have been documented in the HPI. ROS Other: All systems not noted in ROS Statement are negative. Past Medical History Past Medical History: Hypertension Additional Past Medical History / Comment(s): BACK PAIN; BULGING DISCS shoulder, fx clavicle . Hepatitis C History of Any Multi-Drug Resistant Organisms: None Reported Past Surgical History: Orthopedic Surgery Additional Past Surgical History / Comment(s): EYE SURGERY, oral surgery, tooth extractoin 09-18-17 Past Psychological History: Anxiety, Bipolar, Depression Smoking Status: Current every day smoker Past Alcohol Use History: Rare Past Drug Use History: Marijuana General Exam Limitations: no limitations General appearance: alert, in no apparent distress Head exam: Present: atraumatic, normocephalic, normal inspection Eye exam: Present: normal appearance, PERRL, EOMI. Absent: scleral icterus, conjunctival injection, periorbital swelling ENT exam: Present: normal exam, mucous membranes moist Neck exam: Present: normal inspection. Absent: tenderness, meningismus, lymphadenopathy Respiratory exam: Present: normal lung sounds bilaterally. Absent: respiratory distress, wheezes, rales, rhonchi, stridor Cardiovascular Exam: Present: regular rate, normal rhythm, normal heart sounds. Absent: systolic murmur, diastolic murmur, rubs, gallop, clicks GI/Abdominal exam: Present: soft, normal bowel sounds. Absent: distended, tenderness, guarding, rebound, rigid Extremities exam: Present: normal inspection, full ROM, normal capillary refill. Absent: tenderness, pedal edema, joint swelling, calf tenderness Back exam: Present: normal inspection Neurological exam: Present: alert, oriented X3, CN II-XII intact Psychiatric exam: Present: normal affect, normal mood Skin exam: Present: warm, dry, intact, normal color. Absent: rash Course Vital Signs 05/26/19 05/26/19 07:10 08:02 Temperature 98.2 F Pulse Rate 60 Respiratory 18 20 Rate Blood Pressure 148/95 O2 Sat by Pulse 98 Oximetry Medical Decision Making - Medical Decision Making 38 male here for evaluation with symptomatic urinary tract infection we'll treat with antibiotics and patient can be discharged home - Lab Data Lab Results 05/26/19 05/26/19 05/26/19 Range/Units 07:38 07:38 07:38 Urine Color Yellow Urine Appearance Clear (Clear) Urine pH 5.5 (5.0-8.0) Ur Specific [place] 1.035 (1.001-1.035) Urine Protein Trace H (Negative) Urine Glucose (UA) Negative (Negative) Urine Ketones Negative (Negative) Urine Blood Negative (Negative) Urine Nitrite Negative (Negative) Urine Bilirubin Negative (Negative) Urine Urobilinogen <2.0 (<2.0) mg/dL Ur Leukocyte Esterase Small H (Negative) Urine RBC <1 (0-5) /hpf Urine WBC 15 H (0-5) /hpf Ur Squamous Epith Cells 1 (0-4) /hpf Hyaline Casts 6 H (0-2) /lpf Urine Mucus Few H (None) /hpf Chlamydia Source Urine Chlamydia DNA (PCR) Negative (Neg,Equiv) N. gonorrhoeae Source Urine N.gonorrhoeae DNA Probe Negative (Neg,Equiv) Disposition Clinical Impression: Urethritis Disposition: HOME SELF-CARE Condition: Good Instructions (If sedation given, give patient instructions): Urinary Tract Infection in Men (ED) Prescriptions: Ciprofloxacin HCl [Cipro] 500 mg PO Q12HR #14 tablet Is patient prescribed a controlled substance at d/c from ED?: No Referrals: Alem Henao MD [Primary Care Provider] - 1-2 days
[2019-05-26] MEDS ORDERED: AZITHROMYCIN 500 MG TAB PO STA (07:39)
[2019-05-26] MEDS ORDERED: cefTRIAXone 250 MG VIAL IM STA (07:39)
[2019-05-26 07:57] LABS: Appearance,Urine Clear (Clear); Bilirubin,Urine Negative (Negative); Blood,Urine Negative (Negative); Color,Urine Yellow; Glucose,Urine (UA) Negative (Negative); Hyaline Casts,Urine 6 /lpf (0-2); Ketones,Urine Negative (Negative); Leukocyte Esterase,Urine Small (Negative); Mucus,Urine Few /hpf; Nitrite,Urine Negative (Negative); PH, Urine 5.5 (5.0-8.0); Protein,Urine Trace (Negative); RBC,Urine <1 /hpf (0-5); Specific Gravity,Urine 1.035 (1.001-1.035); Squamous Epithelial Cell,Urine 1 /hpf (0-4); Urobilinogen,Urine <2.0 mg/dL (<2.0); WBC,Urine 15 /hpf (0-5)
[2019-05-26 08:03] VITALS: RESP 20
[2019-05-27 13:36] LABS: C. trachomatis,PCR Negative (Neg,Equiv); Chlamydia trachomatis Source Urine
[2019-05-27 14:38] LABS: N. gonorrhoeae,PCR Negative (Neg,Equiv); Neisseria Source Urine
== END 2019-05-26 08:03 | disposition home or self-care (01) ==
LOC: EC 06:55
DX: N34.2 Other urethritis (principal); I10 Essential (primary) hypertension; F41.9 Anxiety disorder, unspecified; F31.9 Bipolar disorder, unspecified; F17.200 Nicotine dependence, unspecified, uncomplicated; Z79.899 Other long term (current) drug therapy; Z88.8 Allergy status to other drugs, medicaments and biological substances; Z88.5 Allergy status to narcotic agent; Z91.018 Allergy to other foods
CPT/HCPCS: 81001; 87491; 87591; 87086; 99284; 96372; J0696

== ENCOUNTER → 2019-06-03 | Outpatient (CLI) | payer OTHER ==
[2019-06-03 09:12] LABS: Basophils % (A) 1 %; Eosinophils # (A) 0.2 k/uL (0-0.7); Eosinophils % (A) 4 %; HCT 44.3 % (39.0-53.0); Lymphocytes # (A) 2.4 k/uL (1.0-4.8); Lymphocytes % (A) 40 %; MCH 30.1 pg (25.0-35.0); MCHC 33.8 g/dL (31.0-37.0); MCV 88.9 fL (80.0-100.0); Mean Platelet Volume 8.6; Monocytes # (A) 0.4 k/uL (0-1.0); Monocytes % (A) 7 %; Neutrophils # (A) 2.8 k/uL (1.3-7.7); Neutrophils % (A) 46 %; Platelet Count 282 k/uL (150-450); RBC 4.98 m/uL (4.30-5.90); RDW 13.3 % (11.5-15.5)
[2019-06-03 18:12] LABS: ALT 26 U/L (10-49); AST 26 U/L (14-35); African American GFR (CKD) 110.2 (60.0-200.0); Albumin/Globulin Ratio 1.79 (1.60-3.17); Alkaline Phosphatase 80 U/L (41-126); Bilirubin, Conjugated <0.20 mg/dL (0.20-0.40); Carbon Dioxide 25.7 mmol/L (21.6-31.8); Chloride 106 mmol/L (96-109); Chol/HDL Ratio 4.71; Cholesterol 231 mg/dL (0-200); Globulin 2.4 g/dL (1.6-3.3); Glucose 91 mg/dL (70-110); LDL Cholesterol,Calculated 123.4 mg/dL (0.0-131.0); Non-African American GFR(CKD) 95.1 (60.0-200.0); Potassium 4.6 mmol/L (3.5-5.5); Sodium 140 mmol/L (135-145); Total Bilirubin 0.5 mg/dL (0.3-1.2); Total Protein 6.7 g/dL (6.2-8.2)
== END | disposition home or self-care (01) ==
LOC: LABWHC1 08:30
PROVIDERS: ATTEND Physician Assistant
DX: Z13.220 Encounter for screening for lipoid disorders (principal); I10 Essential (primary) hypertension; B18.2 Chronic viral hepatitis C; E55.9 Vitamin D deficiency, unspecified
CPT/HCPCS: 36415; 80053; 80061; 82248; 82306; 84443; 85025; 87522

== ENCOUNTER → 2019-09-26 | Outpatient (CLI) | payer OTHER ==
[2019-09-26 12:44] LABS: Basophils % (A) 0 %; Eosinophils # (A) 0.1 k/uL (0-0.7); Eosinophils % (A) 2 %; HCT 47.5 % (39.0-53.0); HGB 15.5 gm/dL (13.0-17.5); Lymphocytes # (A) 1.6 k/uL (1.0-4.8); Lymphocytes % (A) 29 %; MCH 28.9 pg (25.0-35.0); MCHC 32.7 g/dL (31.0-37.0); MCV 88.4 fL (80.0-100.0); Mean Platelet Volume 8.4; Monocytes # (A) 0.3 k/uL (0-1.0); Monocytes % (A) 5 %; Neutrophils # (A) 3.4 k/uL (1.3-7.7); Neutrophils % (A) 62 %; Platelet Count 218 k/uL (150-450); RBC 5.38 m/uL (4.30-5.90); RDW 13.3 % (11.5-15.5); WBC 5.5 k/uL (3.8-10.6)
[2019-09-26 19:53] LABS: Albumin 4.7 g/dL (3.80-4.90); Albumin/Globulin Ratio 1.57 (1.60-3.17); Bilirubin, Conjugated 0.5 mg/dL (0.20-0.40); Bilirubin,Unconjugated 0.7 mg/dL; Total Bilirubin 1.2 mg/dL (0.3-1.2); Total Protein 7.7 g/dL (6.2-8.2)
== END | disposition home or self-care (01) ==
LOC: LABWHC1 11:45
PROVIDERS: ATTEND Internal Medicine Gastroenterology
DX: B18.2 Chronic viral hepatitis C (principal)
CPT/HCPCS: 36415; 80076; 85025; 87522

== ENCOUNTER → 2019-12-23 | Outpatient (CLI) | payer OTHER ==
[2019-12-23 12:17] LABS: Basophils # (A) 0.1 k/uL (0-0.2); Basophils % (A) 1 %; Eosinophils # (A) 0.3 k/uL (0-0.7); Eosinophils % (A) 3 %; HCT 41.9 % (39.0-53.0); HGB 13.8 gm/dL (13.0-17.5); Lymphocytes % (A) 24 %; MCH 29.5 pg (25.0-35.0); MCV 89.5 fL (80.0-100.0); Mean Platelet Volume 8.7; Monocytes # (A) 0.3 k/uL (0-1.0); Monocytes % (A) 4 %; Neutrophils # (A) 5.5 k/uL (1.3-7.7); Neutrophils % (A) 67 %; Platelet Count 213 k/uL (150-450); RBC 4.68 m/uL (4.30-5.90); RDW 13.8 % (11.5-15.5); WBC 8.2 k/uL (3.8-10.6)
[2019-12-23 18:35] LABS: African American GFR (CKD) 109.4 (60.0-200.0); Albumin 4.4 g/dL (3.80-4.90); Albumin/Globulin Ratio 1.69 (1.60-3.17); Anion Gap 10.9 mmol/L (4.00-12.00); Carbon Dioxide 23.1 mmol/L (21.6-31.8); Chol/HDL Ratio 3.27; Globulin 2.6 g/dL (1.6-3.3); LDL Cholesterol,Calculated 104.4 mg/dL (0.0-131.0); Non-African American GFR(CKD) 94.4 (60.0-200.0); Potassium 3.9 mmol/L (3.5-5.5); Total Bilirubin 0.9 mg/dL (0.2-1.2); VLDL Calculation 20.6 mg/dL (5.00-40.00)
[2019-12-23 20:13] LABS: ACTH 35.2 pg/mL (0.00-45.99)
[2019-12-24 10:15] LABS: Free Kappa Lt Chain Qnt, Serum 1.82 mg/dL (0.33-1.94)
[2019-12-26 14:05] LABS: Metanephrine, Free 104 pg/mL (< OR = 57); Normetanephrine, Free 99 pg/mL (< OR = 148); Total, Free (MN + NMN) 203 pg/mL (< OR = 205)
== END | disposition home or self-care (01) ==
LOC: LABWHC1 09:44
PROVIDERS: ATTEND Family Medicine
DX: I10 Essential (primary) hypertension (principal); F41.8 Other specified anxiety disorders; E78.2 Mixed hyperlipidemia; E55.9 Vitamin D deficiency, unspecified; Z71.3 Dietary counseling and surveillance; Z71.82 Exercise counseling
CPT/HCPCS: 36415; 80053; 80061; 82024; 82088; 82306; 82533; 83835; 83883; 84244; 84443; 85025

== ENCOUNTER 2020-11-29 21:24 | Emergency (ER) | payer OTHER ==
[2020-11-29 21:36] VITALS: TEMP 97.9
[2020-11-29] MEDS ORDERED: KETOROLAC 15 MG/ML 1 ML VIAL IM STA (21:49)
[2020-11-29] MEDS ORDERED: ORPHENADRINE 30 MG/ML 2 ML VIAL IM STA (21:49)
--- NOTE | 2020-11-29 23:12 | ED ---
General Adult HPI - General Chief complaint: Neck Pain/Injury Stated complaint: Neck/Back Pain Time Seen by Provider: 11/29/20 21:38 Source: patient Mode of arrival: ambulatory Limitations: no limitations - History of Present Illness Initial comments: 40-year-old male with a past medical history of back pain, bulging disks presents to the emergency room for right sided neck pain. Patient states he has pain in the right neck and into the right shoulder. Patient reports that this started when he woke up. States that turning his neck to the right worsens his pain as does lifting his shoulder. Pt denies headache. Denies any numbness or tingling in the right arm.Patient has no other complaints at this time including shortness of breath, chest pain, abdominal pain, nausea or vomiting, headache, or visual changes. - Related Data Home Medications Medication Instructions Recorded Confirmed Cetirizine HCl [Zyrtec] 10 mg PO DAILY 10/02/18 10/02/18 FLUoxetine HCL [PROzac] 10 mg PO DAILY 10/02/18 10/02/18 Previous Rx's Medication Instructions Recorded Metoprolol Tartrate 25 mg PO BID #60 tab 01/10/16 Ciprofloxacin HCl [Cipro] 500 mg PO Q12HR #14 tablet 05/26/19 Acetaminophen [Tylenol] 500 mg PO Q4-6H PRN #20 tab 11/29/20 Cyclobenzaprine [Flexeril] 10 mg PO TID #14 tab 11/29/20 Ibuprofen [Motrin] 600 mg PO Q8HR PRN #20 tab 11/29/20 Allergies Allergy/AdvReac Type Severity Reaction Status Date / Time diclofenac potassium Allergy Rash/Hives Verified 05/26/19 07:12 [From Cataflam] garlic Allergy Rash/Hives Verified 05/26/19 07:12 tramadol Allergy Unknown Verified 05/26/19 07:12 ziprasidone HCl [From Geodon] Allergy Unknown Verified 05/26/19 07:12 ziprasidone mesylate Allergy Unknown Verified 05/26/19 07:12 [From Geodon] buspirone [From BuSpar] AdvReac MAKES Verified 05/26/19 07:12 ANXIETY WORSE Review of Systems ROS Statement: Those systems with pertinent positive or pertinent negative responses have been documented in the HPI. ROS Other: All systems not noted in ROS Statement are negative. Past Medical History Past Medical History: Hypertension Additional Past Medical History / Comment(s): BACK PAIN; BULGING DISCS shoulder, fx clavicle . Hepatitis C History of Any Multi-Drug Resistant Organisms: None Reported Past Surgical History: Orthopedic Surgery Additional Past Surgical History / Comment(s): EYE SURGERY, oral surgery, tooth extractoin 09-18- Past Psychological History: Anxiety, Bipolar, Depression Smoking Status: Never smoker Past Alcohol Use History: Rare Past Drug Use History: Marijuana General Exam Limitations: no limitations General appearance: alert, in no apparent distress Head exam: Present: atraumatic, normocephalic, normal inspection Eye exam: Present: normal appearance, PERRL, EOMI. Absent: scleral icterus, conjunctival injection, periorbital swelling ENT exam: Present: normal exam, mucous membranes moist Neck exam: Present: tenderness (Tenderness to the right cervical paraspinal muscles), full ROM (Rotation to the right does elicit pain). Absent: meningismus, lymphadenopathy Respiratory exam: Present: normal lung sounds bilaterally. Absent: respiratory distress, wheezes, rales, rhonchi, stridor Cardiovascular Exam: Present: regular rate, normal rhythm, normal heart sounds. Absent: systolic murmur, diastolic murmur, rubs, gallop, clicks GI/Abdominal exam: Present: soft, normal bowel sounds. Absent: distended, tenderness, guarding, rebound, rigid Extremities exam: Present: other (Radial pulses 2+ bilaterally) Course Vital Signs 11/29/20 21:33 Temperature 97.9 F Pulse Rate 86 Respiratory 19 Rate Blood Pressure 150/101 O2 Sat by Pulse 99 Oximetry Medical Decision Making - Medical Decision Making Patient likely has cervical muscle strain. Pain is reproducible to palpation and with rotation to the right. Patient was given Toradol and Norflex. Patient with exertion with anti-inflammatories which she requests prescriptions for as well as Flexeril. He will return here for any worsening symptoms. Disposition Clinical Impression: Strain of neck muscle Disposition: HOME SELF-CARE Condition: Good Instructions (If sedation given, give patient instructions): Cervical Strain (ED) Additional Instructions: Please take medications as directed. Do not drive or operate machinery while taking Flexeril. Follow up with primary care. Return to the emergency room for any worsening symptoms. Prescriptions: Cyclobenzaprine [Flexeril] 10 mg PO TID #14 tab Ibuprofen [Motrin] 600 mg PO Q8HR PRN #20 tab PRN Reason: Pain Acetaminophen [Tylenol] 500 mg PO Q4-6H PRN #20 tab PRN Reason: Pain Is patient prescribed a controlled substance at d/c from ED?: No Referrals: Alem Henao MD [Primary Care Provider] - 1-2 days Time of Disposition: 23:11
[2020-11-29 23:17] VITALS: BP 144/99; PULSE 71; RESP 18
== END 2020-11-29 23:19 | disposition home or self-care (01) ==
LOC: EC 21:24
DX: S16.1XXA Strain of muscle, fascia and tendon at neck level, initial encounter (principal); I10 Essential (primary) hypertension; F31.9 Bipolar disorder, unspecified; F41.9 Anxiety disorder, unspecified; Z79.1 Long term (current) use of non-steroidal anti-inflammatories (NSAID); Z88.5 Allergy status to narcotic agent; Z88.8 Allergy status to other drugs, medicaments and biological substances; Z79.899 Other long term (current) drug therapy; X58.XXXA Exposure to other specified factors, initial encounter
CPT/HCPCS: 96372 ×2; 99283; J2360; J1885

== ENCOUNTER 2021-03-27 13:06 | Emergency (ER) | payer OTHER ==
[2021-03-27 13:20] VITALS: RESP 18; TEMP 98
[2021-03-27] MEDS ORDERED: ASPIRIN 81 MG PO STA (14:54)
[2021-03-27] MEDS ORDERED: LORazepam 2 MG/ML INJ IV STA (14:55)
[2021-03-27] MEDS ORDERED: FLUORESCEIN STRIPS 1 MG STRIP RIGHT EYE ONE (14:55)
[2021-03-27 15:35] LABS: Basophils # (A) 0.1 k/uL (0-0.2); Basophils % (A) 1 %; Eosinophils # (A) 0.1 k/uL (0-0.7); Eosinophils % (A) 1 %; HCT 45.8 % (39.0-53.0); HGB 15.7 gm/dL (13.0-17.5); Lymphocytes # (A) 1.6 k/uL (1.0-4.8); Lymphocytes % (A) 21 %; MCH 30.6 pg (25.0-35.0); MCHC 34.2 g/dL (31.0-37.0); MCV 89.4 fL (80.0-100.0); Mean Platelet Volume 9.1; Monocytes # (A) 0.3 k/uL (0-1.0); Monocytes % (A) 4 %; Neutrophils # (A) 5.4 k/uL (1.3-7.7); Neutrophils % (A) 72 %; Platelet Count 242 k/uL (150-450); RBC 5.12 m/uL (4.30-5.90); RDW 13.4 % (11.5-15.5); WBC 7.6 k/uL (3.8-10.6)
[2021-03-27 15:45] LABS: INR 0.9 (<1.2); Prothrombin Time 10.1 sec (9.0-12.0)
--- NOTE | 2021-03-27 15:45 | XR ---
EXAMINATION TYPE: XR chest 2V DATE OF EXAM: 03/27/2021 COMPARISON: 03/27/2018 HISTORY: Chest pain TECHNIQUE: 2 views FINDINGS: Heart and mediastinum are normal. Lungs are clear. Diaphragm is normal. Bony thorax is inta ct. IMPRESSION: Normal chest. No change.
[2021-03-27] MEDS ORDERED: ERYTHROMYCIN 5 MG/GM OPHTH OINT 3.5 GM TUBE BOTH EYES STA (15:52)
[2021-03-27 15:53] LABS: ALT 23 U/L (4-49); AST 29 U/L (17-59); African American GFR (CKD) >90 (>60 ml/min/1.73 sqM); Albumin 4.6 g/dL (3.5-5.0); Alkaline Phosphatase 113 U/L (38-126); Anion Gap 8 mmol/L; Blood Urea Nitrogen 11 mg/dL (9-20); Calcium 9.4 mg/dL (8.4-10.2); Carbon Dioxide 23 mmol/L (22-30); Chloride 105 mmol/L (98-107); Glucose 92 mg/dL (74-99); Magnesium 2.1 mg/dL (1.6-2.3); Non-African American GFR(CKD) >90 (>60 ml/min/1.73 sqM); Potassium 4.3 mmol/L (3.5-5.1); Sodium 136 mmol/L (137-145); Total Bilirubin 0.7 mg/dL (0.2-1.3); Total Protein 8.2 g/dL (6.3-8.2)
--- NOTE | 2021-03-27 16:12 | ED ---
General Adult HPI - General Chief complaint: Recheck/Abnormal Lab/Rx Stated complaint: High BP/Headache/Weakness Time Seen by Provider: 03/27/21 14:34 Source: patient, RN notes reviewed, old records reviewed Mode of arrival: ambulatory Limitations: no limitations - History of Present Illness Initial comments: Patient is a 40-year-old male with past medical history remarkable for anxiety, hypertension who presents emergency department after being sent in by urgent care for evaluation due to hypertension. Patient states he has bad anxiety the intermittently will have chest palpitations and discomfort which he had earlier today secondary to right eye pain. Patient states he believes he scratched his eye 3 days ago and has been having some discharge from both eyes since. He does get this on a regular basis and has severe ALLERGIES. He states he feels like there is a "film" over his eyes and when he wipes away he is able to see fine. He is supposed were glasses but is noncompliant. States he did feel anxious earlier at urgent care but currently denies any acute complaints. Anxiety earlier included chest tightness as well as palpitations. Denies any nausea, vomiting, abdominal pain. Denies any headache, weakness, numbness. He denies any blurry vision at this time. He does endorse some rhinorrhea. Denies any sick contacts. Was tested for Covid at urgent care and it was negative. Patient presents because urgent care wanted him to be evaluated. They did state that he had a corneal abrasion on his right eye but did not provide him with any antibiotics. They're concerned regarding his a symptomatic hypertension otherwise. Patient states she is compliant with his antihypertensive medications. - Related Data Home Medications Medication Instructions Recorded Confirmed Atorvastatin [Lipitor] 40 mg PO HS 03/27/21 03/27/21 Methocarbamol [Robaxin-750] 750 mg PO BID PRN 03/27/21 03/27/21 Mirtazapine [Remeron] 15 mg PO HS PRN 03/27/21 03/27/21 buPROPion SR [Wellbutrin SR] 150 mg PO DAILY 03/27/21 03/27/21 Previous Rx's Medication Instructions Recorded Metoprolol Tartrate 25 mg PO BID #60 tab 01/10/16 Erythromycin Ophth Oint (1 gm) 1 applic BOTH EYES QID #2 gram 03/27/21 [Ilotycin Ophth Oint (1 gm)] Allergies Allergy/AdvReac Type Severity Reaction Status Date / Time diclofenac potassium Allergy Rash/Hives Verified 03/27/21 15:04 [From Cataflam] garlic Allergy Rash/Hives Verified 03/27/21 15:04 tramadol Allergy Unknown Verified 03/27/21 15:04 ziprasidone HCl [From Geodon] Allergy Unknown Verified 03/27/21 15:04 ziprasidone mesylate Allergy Unknown Verified 03/27/21 15:04 [From Geodon] buspirone [From BuSpar] AdvReac MAKES Verified 03/27/21 15:04 ANXIETY WORSE Review of Systems ROS Statement: Those systems with pertinent positive or pertinent negative responses have been documented in the HPI. Review of Systems: CONST: Denies fever EYES: Endorses right eye pain ENT: Endorses nasal congestion C/V: Denies Chest pain RESP: Denies shortness of breath GI: Denies abdominal pain : Denies dysuria SKIN: Denies rash. MSK: Denies joint pain. NEURO: Denies headache ROS Other: All systems not noted in ROS Statement are negative. Past Medical History Past Medical History: Hypertension Additional Past Medical History / Comment(s): BACK PAIN; BULGING DISCS shoulder, fx clavicle . Hepatitis C History of Any Multi-Drug Resistant Organisms: None Reported Past Surgical History: Orthopedic Surgery Additional Past Surgical History / Comment(s): EYE SURGERY, oral surgery, tooth extractoin 09-18- Past Psychological History: Anxiety, Bipolar, Depression Smoking Status: Never smoker Past Alcohol Use History: Rare Past Drug Use History: Marijuana General Exam - General Exam Comments Initial Comments: General: Appears in no acute distress. HEAD: Normal with no signs of head trauma. EYES: Pupils are 3 mm and equal bilaterally. EOMI. Bilateral conjunctival injection. Fluorescein stain on the right eye revealed a small corneal abrasion at the 9 o'clock position. ENT: Hearing grossly intact, normal oropharynx. RESPIRATORY: Clear breath sounds bilaterally. No wheezes, rales, or rhonchi. C/V: Regular rate and rhythm. S1 and S2 auscultated, no edema, peripheral pulses 2+ and intact throughout ABD: Abd is soft, nontender, nondistended EXT: Normal range of motion, no obvious deformity SKIN: No rashes or lesions observed on exposed skin. NEURO: Alert and oriented x 4. Cranial nerves II-XII intact. No focal sensory or strength deficits. Limitations: no limitations Course Vital Signs 03/27/21 03/27/21 13:19 15:16 Temperature 98 F Pulse Rate 58 L 66 Respiratory 18 18 Rate Blood Pressure 194/114 180/117 O2 Sat by Pulse 100 100 Oximetry Medical Decision Making - Medical Decision Making Based on the patient's presentation and physical exam, he appears to be having a symptomatically hypertension. He also has an associated right corneal abrasion. He states he felt anxious earlier but currently has no symptoms. States that chest discomfort and palpitations he had earlier are recurrent and he currently is not expressing them, however due to concern of urgent care we will obtain a cardiac workup including troponin, EKG, chest x-ray and basic labs. For some staining revealed a corneal abrasion of the right eye and he will be started on erythromycin eye ointment. He is not a contact lens user. The patient was in agreement this plan. He will receive aspirin as well as Ativan for his symptoms. Chest x-ray revealed no acute cardiopulmonary process. EKG revealed no signs of acute ischemia. Laboratory studies were unremarkable. This includes a negative troponin. On reevaluation, patient remains a symptomatically this time. I believe it is safer to be discharged home. Blood pressure is improved at this time. Patient was in agreement this plan. Patient is already planning for a eye doctor follow-up appointment. I will provide the patient with a prescription for erythromycin eye ointment. I instructed the patient to follow up with their PCP in the next 3 days. I explained that the patient should return to the emergency department if they experience any worsening symptoms. Strict return precautions were discussed with the patient. The patient expressed understanding of these instructions. I answered all questions that the patient had. The patient was discharged home in good condition with their prescriptions and follow up information. - Lab Data Result diagrams: 03/27/21 15:08 03/27/21 15:08 Lab Results 03/27/21 03/27/21 03/27/21 Range/Units 15:08 15:08 15:08 WBC 7.6 (3.8-10.6) k/uL RBC 5.12 (4.30-5.90) m/uL Hgb 15.7 (13.0-17.5) gm/dL Hct 45.8 (39.0-53.0) % MCV 89.4 (80.0-100.0) fL MCH 30.6 (25.0-35.0) pg MCHC 34.2 (31.0-37.0) g/dL RDW 13.4 (11.5-15.5) % Plt Count 242 (150-450) k/uL MPV 9.1 Neutrophils % 72 % Lymphocytes % 21 % Monocytes % 4 % Eosinophils % 1 % Basophils % 1 % Neutrophils # 5.4 (1.3-7.7) k/uL Lymphocytes # 1.6 (1.0-4.8) k/uL Monocytes # 0.3 (0-1.0) k/uL Eosinophils # 0.1 (0-0.7) k/uL Basophils # 0.1 (0-0.2) k/uL PT 10.1 (9.0-12.0) sec INR 0.9 (<1.2) APTT 25.0 (22.0-30.0) sec Sodium 136 L (137-145) mmol/L Potassium 4.3 (3.5-5.1) mmol/L Chloride 105 (98-107) mmol/L Carbon Dioxide 23 (22-30) mmol/L Anion Gap 8 mmol/L BUN 11 (9-20) mg/dL Creatinine 0.78 (0.66-1.25) mg/dL Est GFR (CKD-EPI)AfAm >90 (>60 ml/min/1.73 sqM) Est GFR (CKD-EPI)NonAf >90 (>60 ml/min/1.73 sqM) Glucose 92 (74-99) mg/dL Calcium 9.4 (8.4-10.2) mg/dL Magnesium 2.1 (1.6-2.3) mg/dL Total Bilirubin 0.7 (0.2-1.3) mg/dL AST 29 (17-59) U/L ALT 23 (4-49) U/L Alkaline Phosphatase 113 (38-126) U/L Troponin I (0.000-0.034) ng/mL Total Protein 8.2 (6.3-8.2) g/dL Albumin 4.6 (3.5-5.0) g/dL 03/27/21 Range/Units 15:08 WBC (3.8-10.6) k/uL RBC (4.30-5.90) m/uL Hgb (13.0-17.5) gm/dL Hct (39.0-53.0) % MCV (80.0-100.0) fL MCH (25.0-35.0) pg MCHC (31.0-37.0) g/dL RDW (11.5-15.5) % Plt Count (150-450) k/uL MPV Neutrophils % % Lymphocytes % % Monocytes % % Eosinophils % % Basophils % % Neutrophils # (1.3-7.7) k/uL Lymphocytes # (1.0-4.8) k/uL Monocytes # (0-1.0) k/uL Eosinophils # (0-0.7) k/uL Basophils # (0-0.2) k/uL PT (9.0-12.0) sec INR (<1.2) APTT (22.0-30.0) sec Sodium (137-145) mmol/L Potassium (3.5-5.1) mmol/L Chloride (98-107) mmol/L Carbon Dioxide (22-30) mmol/L Anion Gap mmol/L BUN (9-20) mg/dL Creatinine (0.66-1.25) mg/dL Est GFR (CKD-EPI)AfAm (>60 ml/min/1.73 sqM) Est GFR (CKD-EPI)NonAf (>60 ml/min/1.73 sqM) Glucose (74-99) mg/dL Calcium (8.4-10.2) mg/dL Magnesium (1.6-2.3) mg/dL Total Bilirubin (0.2-1.3) mg/dL AST (17-59) U/L ALT (4-49) U/L Alkaline Phosphatase (38-126) U/L Troponin I <0.012 (0.000-0.034) ng/mL Total Protein (6.3-8.2) g/dL Albumin (3.5-5.0) g/dL - EKG Data -: EKG Interpreted by Me EKG Comments: 12-lead Electrocardiogram Interpretation Note EKG was reviewed and interpreted by myself. 12-lead ECG performed at 1322 is interpreted by me as revealing sinus bradycardia with sinus arrhythmia at a rate of 55 beats per minute. [place] is normal. GA interval is 182 ms, QRS duration is 86 ms, QTc is 384 ms.. There were no ST or T wave abnormalities to suggest myocardial ischemia or injury. R wave progression across the precordium was satisfactory. By my interpretation this EKG is non-diagnostic for acute ischemia . Disposition Clinical Impression: Corneal abrasion, Hypertension, Anxiety Disposition: HOME SELF-CARE Condition: Good Instructions (If sedation given, give patient instructions): Corneal Abrasion (ED) Prescriptions: Erythromycin Ophth Oint (1 gm) [Ilotycin Ophth Oint (1 gm)] 1 applic BOTH EYES QID #2 gram Is patient prescribed a controlled substance at d/c from ED?: No Referrals: Alem Henao MD [Primary Care Provider] - 1-2 days
[2021-03-27 16:37] VITALS: BP 172/114; PULSE 70
== END 2021-03-27 16:53 | disposition home or self-care (01) ==
LOC: EC 13:06
DX: S05.00XA Injury of conjunctiva and corneal abrasion without foreign body, unspecified eye, initial encounter (principal); I10 Essential (primary) hypertension; F41.9 Anxiety disorder, unspecified; F31.9 Bipolar disorder, unspecified; F12.90 Cannabis use, unspecified, uncomplicated; Z79.899 Other long term (current) drug therapy
CPT/HCPCS: 36415; 93005; 80053; 83735; 84484; 85025; 85610; 85730; 71046; 99285; 96374; J2060

== ENCOUNTER 2022-10-10 19:57 | Emergency (ER) | payer OTHER ==
[2022-10-10 20:28] VITALS: TEMP 98
--- NOTE | 2022-10-10 20:49 | ED ---
General Adult HPI - General Chief complaint: Extremity Injury, Lower Stated complaint: Ankle Injury Time Seen by Provider: 10/10/22 20:35 Source: patient, RN notes reviewed Mode of arrival: ambulatory Limitations: no limitations - History of Present Illness Initial comments: 42-year-old male presents to the emergency department chief complaint of right ankle pain. Patient states that he injured his right ankle about 2 weeks ago and then 2 days ago he twisted his ankle going down the stairs. He states that he thinks he inverted his ankle. He reports significant swelling to the lateral aspect of his ankle with pain. He states that he has been taking Tylenol and Motrin for pain along with using icy hot and elevating the ankle. He states he does have some improvement in the swelling when he elevates the ankle. Denies numbness, tingling. Denies fever, chills. Denies any pain at the knee. He does report some pain on the lateral aspect of his foot. He states he does not take any daily medications currently. - Related Data Home Medications Medication Instructions Recorded Confirmed Atorvastatin [Lipitor] 40 mg PO HS 03/27/21 03/27/21 Mirtazapine [Remeron] 15 mg PO HS PRN 03/27/21 03/27/21 buPROPion SR [Wellbutrin SR] 150 mg PO DAILY 03/27/21 03/27/21 methocarbamoL [Robaxin-750] 750 mg PO BID PRN 03/27/21 03/27/21 Previous Rx's Medication Instructions Recorded Metoprolol Tartrate 25 mg PO BID #60 tab 01/10/16 Erythromycin Ophth Oint (1 gm) 1 applic BOTH EYES QID #2 gram 03/27/21 [Ilotycin Ophth Oint (1 gm)] Ibuprofen [Motrin] 600 mg PO Q8HR PRN #30 tab 10/10/22 Allergies Allergy/AdvReac Type Severity Reaction Status Date / Time diclofenac potassium Allergy Rash/Hives Verified 10/10/22 20:28 [From Cataflam] garlic Allergy Rash/Hives Verified 10/10/22 20:28 tramadol Allergy Unknown Verified 10/10/22 20:28 ziprasidone HCl [From Geodon] Allergy Unknown Verified 10/10/22 20:28 ziprasidone mesylate Allergy Unknown Verified 10/10/22 20:28 [From Geodon] buspirone [From BuSpar] AdvReac MAKES Verified 10/10/22 20:28 ANXIETY WORSE Review of Systems ROS Statement: Those systems with pertinent positive or pertinent negative responses have been documented in the HPI. ROS Other: All systems not noted in ROS Statement are negative. Past Medical History Past Medical History: Hypertension Additional Past Medical History / Comment(s): BACK PAIN; BULGING DISCS shoulder, fx clavicle . Hepatitis C History of Any Multi-Drug Resistant Organisms: None Reported Past Surgical History: Orthopedic Surgery Additional Past Surgical History / Comment(s): EYE SURGERY, oral surgery, tooth extractoin 09-18-17 Past Psychological History: Anxiety, Bipolar, Depression Smoking Status: Current every day smoker Past Alcohol Use History: Rare Past Drug Use History: Marijuana General Exam Limitations: no limitations General appearance: alert, in no apparent distress Head exam: Present: atraumatic, normocephalic, normal inspection Eye exam: Present: normal appearance, PERRL, EOMI. Absent: scleral icterus, conjunctival injection, periorbital swelling ENT exam: Present: normal exam, mucous membranes moist Neck exam: Present: normal inspection. Absent: tenderness, meningismus, lymphadenopathy Respiratory exam: Present: normal lung sounds bilaterally. Absent: respiratory distress, wheezes, rales, rhonchi, stridor Cardiovascular Exam: Present: regular rate, normal rhythm, normal heart sounds. Absent: systolic murmur, diastolic murmur, rubs, gallop, clicks Extremities exam: Present: other (Soft tissue swelling over the lateral malleolus, TTP over lateral malleolus ,DP and PT pulses 2+, normal capillary refill, minimally decreased ROM at ankle, normal ROM at knee and toes) Back exam: Present: normal inspection Neurological exam: Present: alert, oriented X3 Psychiatric exam: Present: normal affect, normal mood Skin exam: Present: warm, dry, intact, other (ecchymosis over the lateral malleolus and proximal digits 2-5) Course Vital Signs 10/10/22 10/10/22 20:25 21:44 Temperature 98.0 F Pulse Rate 63 52 L Respiratory 20 16 Rate Blood Pressure 151/101 163/98 O2 Sat by Pulse 99 100 Oximetry Medical Decision Making - Medical Decision Making Was pt. sent in by a medical professional or institution (, PA, [facility], urgent care, hospital, or [facility]...) When possible be specific @ -No Did you speak to anyone other than the patient for history (EMS, parent, family, police, friend...)? What history was obtained from this source @ -No Did you review nursing and triage notes (agree or disagree)? Why? @ -I reviewed and agree with nursing and triage notes Were old charts reviewed (outside hosp., previous admission, EMS record, old EKG, old radiological studies, urgent care reports/EKG's, [facility] records)? Report findings @ -No old charts were reviewed Differential Diagnosis (chest pain, altered mental status, abdominal pain women, abdominal pain men, vaginal bleeding, weakness, fever, dyspnea, syncope, headache, dizziness, GI bleed, back pain, seizure, CVA, palpatations, mental health, musculoskeletal)? @ -Differential Musculoskeletal Muscular strain, contusion, ligament sprain, fracture, arthritis, septic arthritis, bursitis, cellulitis, muscle spasm, nerve compression, DVT, arterial occlusion, herpes zoster, electrolyte abnormality, tumor.... This is not meant to be in all inclusive list EKG interpreted by me (3pts min.). @ -none X-rays interpreted by me (1pt min.). @ -X-ray of right ankle and foot show no evidence for acute fracture, soft tissue swelling over the ankle CT interpreted by me (1pt min.). @ -None done U/S interpreted by me (1pt. min.). @ -None done What testing was considered but not performed or refused? (CT, X-rays, U/S, labs)? Why? @ -None What meds were considered but not given or refused? Why? @ -None Did you discuss the management of the patient with other professionals (professionals i.e. , PA, [facility], lab, RT, psych nurse, social services, internet programmer, teacher, aoc director intelligence officer, case operator)? Give summary @ -No Was smoking cessation discussed for >3mins.? @ -No Was critical care preformed (if so, how long)? @ -No Were there social determinants of health that impacted care today? How? (Homelessness, low income, unemployed, alcoholism, drug addiction, transportation, low edu. Level, literacy, decrease access to med. care, retirement, rehab)? @ -No Was there de-escalation of care discussed even if they declined (Discuss DNR or withdrawal of care, Hospice)? DNR status @ -No What co-morbidities impacted this encounter? (DM, HTN, Smoking, COPD, CAD, Cancer, CVA, ARF, Chemo, Hep., AIDS, mental health diagnosis, sleep apnea, morbid obesity)? @ -None Was patient admitted / discharged? Hospital course, mention meds given and route, prescriptions, significant lab abnormalities, going to OR and other pertinent info. @ -Discharged. Patient presented to emergency department chief complaint of right ankle pain following an injury that he sustained on the stairs 2 days ago. He states that he has been elevating his foot and applying icy hot which he states seems to help. He reports that he is able to walk with minimal limitation. On examination, patient has soft tissue swelling and ecchymosis to the lateral malleolus. XR of the right foot and ankle were obtained which showed no acute fracture. Patient was given tylenol. patient wrapped in an mary bandage. He states that he has an Aircast at home. Patient requested a prescription in for Motrin which was sent to the pharmacy. Given orthopedic follow up if symptoms do not improve in 1-2 weeks. Patient discharged in stable condition. Case discussed with my attending, Dr. Lockhart Undiagnosed new problem with uncertain prognosis? @ -No Drug Therapy requiring intensive monitoring for toxicity (Heparin, Nitro, Insulin, Cardizem)? @ -No Were any procedures done? @ -No Diagnosis/symptom? @ -ankle sprain Acute, or Chronic, or Acute on Chronic? @ -acute Uncomplicated (without systemic symptoms) or Complicated (systemic symptoms)? @ -uncomplicated Side effects of treatment? @ -No Exacerbation, Progression, or Severe Exacerbation? @ -No Poses a threat to life or bodily function? How? (Chest pain, [place], [place], pneumonia, PE, COPD, DKA, ARF, appy, cholecystitis, CVA, Diverticulitis, Homicidal, Suicidal, threat to staff... and all critical care pts) @ -No Disposition Clinical Impression: Ankle sprain Disposition: HOME SELF-CARE Condition: Stable Instructions (If sedation given, give patient instructions): Ankle Sprain (ED) Additional Instructions: Please follow up with your primary care provider. Return to the emergency department for new or worsening symptoms. Prescriptions: Ibuprofen [Motrin] 600 mg PO Q8HR PRN #30 tab PRN Reason: Pain Is patient prescribed a controlled substance at d/c from ED?: No Referrals: Alem Henao MD [Primary Care Provider] - 1-2 days Cornel Iyer DO [Doctor of Osteopathic Medicine] - 1-2 days Time of Disposition: 21:56
--- NOTE | 2022-10-10 21:25 | XR ---
EXAMINATION TYPE: XR ankle complete RT, XR foot complete RT DATE OF EXAM: 10/10/2022 9:18 PM INDICATION: Patient age:Male; 42 years old; Reason for study: inversion injury; COMPARISON: 10/02/2018 TECHNIQUE: The right foot and ankle is imaged in frontal, lateral and oblique projections. FINDINGS: There is no evidence of acute osseous pathology. The joint spaces are well-preserved without evidenc e of subluxation or dislocation. Kager's fat pad is intact. Mild soft tissue swelling around the ankl e. No radiopaque foreign bodies are identified. Accessory ossicle near the fifth metatarsal. Best nicky reciated on lateral view. IMPRESSION: 1. No evidence of acute fracture. 2. Subcutaneous swelling around the ankle likely secondary to underlying soft tissue injury.
[2022-10-10 21:47] VITALS: BP 163/98; PULSE 52; RESP 16
[2022-10-10] MEDS ORDERED: ACETAMINOPHEN TAB 325 MG TAB PO STA (21:56)
== END 2022-10-10 22:21 | disposition home or self-care (01) ==
LOC: EC 19:57
DX: S93.409A Sprain of unspecified ligament of unspecified ankle, initial encounter (principal); I10 Essential (primary) hypertension; F31.9 Bipolar disorder, unspecified; F41.9 Anxiety disorder, unspecified; F12.90 Cannabis use, unspecified, uncomplicated; F17.200 Nicotine dependence, unspecified, uncomplicated; Z88.5 Allergy status to narcotic agent; Z88.8 Allergy status to other drugs, medicaments and biological substances; X50.1XXA Overexertion from prolonged static or awkward postures, initial encounter
CPT/HCPCS: 99283